=== PATIENT | female | born 1980 | race Caucasian/White ===

== ENCOUNTER 2024-01-28 06:16 | Day surgery (SDC) | payer BC ==
[~2024-01-28 06:16] MED LIST: Sodium Chloride 0.9% 10 ML Syringe FLUSH PRN
[2024-01-28] MEDS ORDERED: Lidocaine 2% 100 MG/5 ML Syringe IVPUSH ONE (06:17)
[2024-01-28] MEDS ORDERED: Propofol 200 MG/20 ML SDV IV ONE (06:17)
[2024-01-28] MEDS: Lactated Ringers 1,000 ML IV SCH (07:15)
[2024-01-28] MEDS: Simethicone Drops 40 MG/0.6 ML 30 ML Bottle ONE (07:34)
[2024-01-30 07:36] LABS: ADENOVIRUS 40/41 PCR Not Detected; ASTROVIRUS PCR Not Detected; CAMPYLOBACTER PCR Not Detected; CRYPTOSPORIDIUM PCR Not Detected; CYCLOSPORA CAYETANENSIS PCR Not Detected; ENTAMOEBA HISTOLYTICA PCR Not Detected; ENTEROAGGREGATIVE E. COLI PCR Not Detected; ENTEROPATHOGENIC E. COLI PCR Not Detected; ENTEROTOXIGENIC E. COLI PCR Not Detected; GIARDIA LAMBLIA PCR Not Detected; NOROVIRUS GI/GII PCR Not Detected; PLESIOMONAS SHIGELLOIDES PCR Not Detected; ROTAVIRUS A PCR Not Detected; SALMONELLA PCR Not Detected; SAPOVIRUS PCR Not Detected; SHIG/ENTEROINVASIVE E COLI PCR Not Detected; SHIGA TOXIN-PRODUC E. COLI PCR Not Detected; VIBRIO CHOLERAE PCR Not Detected; VIBRIO PCR Not Detected; YERSINIA ENTEROCOLITICA PCR Not Detected
[2024-01-30 22:14] LABS: LACTOFERRIN,FECAL BY ELISA Negative (Negative)
== END 2024-01-28 09:00 | disposition home or self-care (01) ==
LOC: FB.SDS 06:16
PROVIDERS: ATTEND Surgery
DX: K52.831 Collagenous colitis (principal); K57.30 Diverticulosis of large intestine without perforation or abscess without bleeding; E78.5 Hyperlipidemia, unspecified; Z79.899 Other long term (current) drug therapy; Z88.0 Allergy status to penicillin
CPT/HCPCS: 00811; 83630; 87507; 88305; A9270-GY; J2704; J7120